=== PATIENT | female | born 1990 | race Caucasian/White ===

== ENCOUNTER 2024-11-01 13:35 | Outpatient (REF) | payer BC, SELFPAY ==
--- OUTSIDE RECORDS SUMMARY | 2024-11-01 15:01 | XMS_ITS | Data Portability ---
Author Organization [facility], , [facility] Address [address] [place] [address] Care Team Providers Care Process Planner Name Role Phone CORRIE FLOYD Primary Care Provide r SEAMUS YOON OTHER EMORY PEACOCK Referring Provider [phone] Assessment Encounter Date Assessment Date Assessment LastModified by Organization Details LastModified Time 07/12/2023 07/12/2023 Visit 2 of 8 Re-eval Due: 09/04/23 Next visit : ? ecc DL heel raise Short Term Goals: In 4 weeks, patient will: 1. Perform DL heel raise with support PRN and foot pain no greater than 4/10. 2. Walk for 10 minutes with foot pain no greater than 4/10. [facility] Goals: In 8 weeks, patient will: 1. Demonstrate pain free active, passive and resisted motions of the right and left foot and ankle. 2. Demonstrate normalized gait on level surfaces for 500 feet. 3. Walk for 20 minutes without foot pain. 4. Demonstrate independence with comprehensive HEP. Subjective : my feet feel a little better, R ankle pain not as bad as it has been L ankle starting to hurt a tiny bit now, too haven't done the [iso ankle eversion] much b/c the side of my feet can hurt if something touches them Objective : -hypertonicity and TTP B plantar muscles, plantar fascia, peroneals Therex : -reviewed HEP w/ pt, updated as below. -seated plantar fascia stretch -toe spreading -gastroc stretch at wall, on step -iso ankle eversion -plantar fascia mob w/ ball Neuromuscular Re-ed : Manual Therapy : -STM and TPR B plantar muscles, distal peroneals -gentle CFM B plantar fascia, peroneal tendons Assessment : Encouraged pt to use ice and to roll feet daily. Reinforced importance of performing HEP consistently to determine efficacy. Plan : follow up next week. Access Code: [email or web address] URL: [email or web address] Date: 07/12/2023 Prepared by: Mandie Foy'Addlucia Exercises - Towel Scrunches - 1 x daily - 7 x weekly - 3 sets - 10 reps - Seated Isometric Ankle Plantarflexion - 3 x daily - 7 x weekly - 1 sets - 5 reps - 15 hold - Isometric Ankle Inversion - 3 x daily - 7 x weekly - 1 sets - 5 reps - 15 hold - Seated Quadratus Lumborum Stretch in Chair (Mirrored) - 3 x daily - 7 x weekly - 1 sets - 3 reps - 15 hold - Gastroc Stretch with Foot at Wall - 3 x daily - 7 x weekly - 1 sets - 3 reps - 15 hold - Seated Plantar Fascia Mobilization with Small Ball - 1 x daily - 7 x weekly - 3 sets - 10 reps - Isometric Ankle Eversion at Wall - 3 x daily - 7 x weekly - 1 sets - 5 reps - 15 hold [email or web address] Not available 07/12/2023 10:17:17 07/19/2023 07/19/2023 Visit 3 of 8 Re-eval Due: 09/04/23 Next visit : ? ecc DL heel raise Short Term Goals: In 4 weeks, patient will: 1. Perform DL heel raise with support PRN and foot pain no greater than 4/10. 2. Walk for 10 minutes with foot pain no greater than 4/10. 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 Demonstrate pain free active, passive and resisted motions of the right and left foot and ankle. 2. Demonstrate normalized gait on level surfaces for 500 feet. 3. Walk for 20 minutes without foot pain. 4. Demonstrate independence with comprehensive HEP. Subjective : arches of my feet feel fine, not really any pain there. my heels have been painful and I've been doing a lot of stretching, rolling and icing. I haven't done any stretches yet this week, b/c it's the week before neema and everything is crazy busy. I'v also been wearing my sneakers in stead of my crocs and my feet always hurt when I wear anything other than my crocs. Objective : -hypertonicity and TTP B tib posterior, R peroneals -foot ER during tib posterior stretch Therex : -reviewed HEP w/ pt, updated as below. -seated plantar fascia stretch -iso ankle PF -iso ankle eversion -seated ankle inversion w/ YTB x 8 R, small ROM x 10 R -standing tib posterior stretch Neuromuscular Re-ed : Manual Therapy : -STM and TPR B distal tib posterior, R distal peroneals -gentle CFM B distal tib posterior Assessment : Patient reports medial ankle pain during ankle inversion w/ YTB, discomfort when performed in a smaller ROM; pt will d/c if exacerbates symptoms. Counseled pt re: pathology of tendinopathy and likelihood of recurrence. Tib posterior stretch ineffective on R until pt performed w/ her R foot pointing forward. Plan : follow up next week. Access Code: [email or web address] URL: [email or web address] Date: 07/19/2023 Prepared by: Mandie Flynn Exercises - Towel Scrunches - 1 x daily - 7 x weekly - 3 sets - 10 reps - Seated Isometric Ankle Plantarflexion - 3 x daily - 7 x weekly - 1 sets - 5 reps - 15 hold - Isometric Ankle Inversion - 3 x daily - 7 x weekly - 1 sets - 5 reps - 15 hold - Seated Quadratus Lumborum Stretch in Chair (Mirrored) - 3 x daily - 7 x weekly - 1 sets - 3 reps - 15 hold - Gastroc Stretch with Foot at Wall - 3 x daily - 7 x weekly - 1 sets - 3 reps - 15 hold - Seated Plantar Fascia Mobilization with Small Ball - 1 x daily - 7 x weekly - 3 sets - 10 reps - Isometric Ankle Eversion at Wall - 3 x daily - 7 x weekly - 1 sets - 5 reps - 15 hold - Seated Figure 4 Ankle Inversion with Resistance - 1 x daily - 7 x weekly - 1-3 sets - 10 reps - Tibialis Posterior Stretch at Wall - 3 x daily - 7 x weekly - 1 sets - 3 reps - 15 hold ddaddamio Not available 07/20/2023 19:51:09 Plan of Treatment Reminders Order Date Submit Date Provider Last Modified By Organization Details Last Modified Time Details Appointments Follow Up, 2024 09:45A Paige Yoon DPM Not available Not available Not available Follow Up, 2024 09:30A Paige Shaw MD Not available Not available Not available Lab lipid panel, serum 2023 024 [facility], [address] [place] [address], [address], 08/16/2024 09:42:07 fungus , cultur e, skin or hair or nails - lt toe nail 2023 024 [facility], [address] [place] [address], [address], 12/19/2023 11:37:50 Referral audiol ogist referr rae Oconnell evalumaria antonia brand for hearin g loss 2023 024 [email or web address] [facility] [address] [place] [address], [place], [address], 07/28/2024 13:48:36 podiat rist referr al - ongokenyetta g rt heel pain 2023 024 [email or web address] Seamus Yoon DPM, [address] [facility], [place], [address], 12/12/2023 10:17:28 Procedures None record ed. Surgeries None record ed. Imaging US, gallbl adder - fatty liver noted in 2021 024 [facility] (Imaging), [address], [place], [address], 07/20/2024 09:00:46 Medication Orders nicoti ne 7 mg/24 hr daily transd ermal patch 2023 024 livan santillano [id number], [address] [place], [address], 07/19/2024 20:24:39 nicoti ne (polac rilex) 2 mg gum 2023 024 [id number] [address] [place], [address], 07/19/2024 11:44:00 clobet asol 0.05 % scalp soluti on 2023 024 [id number] [address] [place], [address], 07/19/2024 12:02:53 calcip otrien e 0.005 % topica l cream 2023 024 [id number] [address] [place], [address], 07/19/2024 12:02:52 cephal exin 500 mg capsul e 2023 024 [id number] [address] [place], [address], 07/19/2024 11:11:49 Patient TargetsNo targets recorded. Patient Instructions Encounter Date Encounter Id Patient Instructions Last Modified By Organization Details Last Modified Time 11/17/2023 [id number] [facility] serves as the focal point for all health care services the patient needs. 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 Referral for Hea ring loss evaluate for hearing loss Referring Physician: Corrie Shaw, Family Medicine, Encounter Date: 07/19/2024 Results Created Date Observation Date Name Description Value Unit Range Abnormal Flag Note LastModifiedBy Organization Detail LastModifiedTime 11/17/19 24 12/19/2023 CULTU RE,FU NGUS, SKIN, HAIR, NAIL W/DIR ECT FLUOR /JURGEN culture,becky us,skin,hair , nail w/direct fluor/jurgen CULTU RE,FU NGUS, SKIN, HAIR, NAIL W/DIR ECT FLUOR /JURGEN Micro Numbe r: [id number] Test Statu s: Final Speci men Sourc e: [place] Speci men Quali ty: Adequ ate Smear : No funga l eleme nts seen. Resul t: No funga l growt h at 4 Weeks [facility] Demog dmitriy cs [place] es Patie nt demog raphi cs have pittman ed. Refer ence range s may have been rocío ed. Sex,S pec updat ed to: F Pittman ed on: 11/20 Not Available [facility] [address], [address], 12/19/2023 11:37:50 08/14/1908/16/2024 COMP. METAB OLIC PANEL glucose 110 mg/dL 70-100 high Not Available [address], [address], 08/16/2024 09:42:06 08/14/1908/16/2024 COMP. METAB OLIC PANEL BUN 9 mg/dL 7-18 Not Available [address], [address], 08/16/2024 09:42:06 08/14/1908/16/2024 COMP. METAB OLIC PANEL creatinine 0.8 mg/dL 0.8-1. 3 Not Available [address], [address], 08/16/2024 09:42:06 08/14/19 25 08/16/2024 COMP. METAB OLIC PANEL B/C 11.3 ratio Not Available [address], [address], 08/16/2024 09:42:06 08/14/1908/16/2024 COMP. METAB OLIC PANEL GFR >=60ML /MIN mL/mi n normal >=60m L/min - Shona l or midly reduc ed <60mL /min- Decre ased kidne y funct ion <15mL /min - Kidne y failu re [facility] calcu lates estim ated Glome rular Filtr ation Rate (eGFR ) using the Chron ic Kidne y Disea se Epide miolo gy Colla borat ion (CKD- EPI) Equat ion (Lucille garnett et. al 2020) as recom kiley d by the Natio nal Kidne y Found ation . eGFR is based on age, serum creat inine , and sex. CKD-E PI does not calcu late eGFR by race, does not apply to child jimmie (age <18 years ), and shoul d not be used in pregn shanice. Not Available [address], [address], 08/16/2024 09:42:06 08/14/1908/16/2024 COMP. METAB OLIC PANEL sodium 140 mmol/ L 136-14 5 Not Available [address], [address], 08/16/2024 09:42:06 08/14/19 25 08/16/2024 COMP. METAB OLIC PANEL potassium 3.9 mmol/ L 3.5-5. 1 Not Available [address], [address], 08/16/2024 09:42:06 08/14/1908/16/2024 COMP. METAB OLIC PANEL chloride 104 mmol/ L 96-107 Not Available [address], [address], 08/16/2024 09:42:06 08/14/1908/16/2024 COMP. METAB OLIC PANEL anion gap 12.7 5.0-15 .0 Not Available [address], [address], 08/16/2024 09:42:06 08/14/19 25 08/16/2024 COMP. METAB OLIC PANEL CO2 23 mmol/ L 21-32 Not Available [address], [address], 08/16/2024 09:42:06 08/14/19 25 08/16/2024 COMP. METAB OLIC PANEL calcium 8.8 mg/dL 8.5-10 .3 Not Available [address], [address], 08/16/2024 09:42:06 08/14/19 25 08/16/2024 COMP. METAB OLIC PANEL total protein 7.7 g/dL 6.4-8. 2 Not Available [address], [address], 08/16/2024 09:42:06 08/14/1908/16/2024 COMP. METAB OLIC PANEL albumin 4.1 g/dL 3.4-5. 0 Not Available [address], [address], 08/16/2024 09:42:06 08/14/1908/16/2024 COMP. METAB OLIC PANEL globulin 3.6 g/dL Not Available [address], [address], 08/16/2024 09:42:06 08/14/1908/16/2024 COMP. METAB OLIC PANEL A/G 1.1 ratio 0.8-2. 0 Not Available [address], [address], 08/16/2024 09:42:06 08/14/1908/16/2024 COMP. METAB OLIC PANEL total bilirubin 0.30 mg/dL 0.00-1 .00 Not Available [address], [address], 08/16/2024 09:42:06 08/14/1908/16/2024 COMP. METAB OLIC PANEL AST 23 U/L 0-37 Not Available [address], [address], 08/16/2024 09:42:06 08/14/19 25 08/16/2024 COMP. METAB OLIC PANEL ALT 41 U/L 6-63 Not Available [address], [address], 08/16/2024 09:42:06 08/14/1908/16/2024 COMP. METAB OLIC PANEL alk. phos. 97 U/L 50-136 Not Available [address], [address], 08/16/2024 09:42:06 08/14/1908/16/2024 LIPID PANEL cholesterol 134 mg/dL <200 mg/dl Srini able 200-2 39 mg/dl Borde rline High >240 mg/dl High Not Available [address], [address], 08/16/2024 09:42:07 08/14/1908/16/2024 LIPID PANEL triglyceride s 155 mg/dL <150 mg/dL Shona l 150-1 99 mg/dL Borde rline High 200-4 99 mg/dL High >500 mg/dL Very High Not Available [address], [address], 08/16/2024 09:42:07 08/14/1908/16/2024 LIPID PANEL direct HDL 36 mg/dL <40 mg/dl - Major Risk for CHD >60 mg/dl - Negat jaida Risk for CHD Not Available [address], [address], 08/16/2024 09:42:07 08/14/1908/16/2024 DIREC T BILIR UBIN direct bilirubin 0.10 mg/dL 0.00-0 .30 Not Available [address], [address], 08/16/2024 09:42:08 08/14/1908/16/2024 LDL - CALCU LATED LDL - calculated 67 RISK CATEG ORY LDL GOAL _ CHD or CHD Risk Equiv alent s <100 mg/dl (10-y ear risk >20%) 2+ Risk Facto rs <130 mg/dl (10-y ear risk <= 20%) 0-1 Risk Facto r? <160 mg/dl ? Almos t all peopl e with 0-1 risk facto r have a 10 year risk <10%, thus 10 year risk asses ment in peopl e with 0-1 risk facto r is not neces antoinette. Not Available [facility] [address] [facility], [place], [address], 08/16/2024 09:42:09 07/20/20 24 07/20/2024 US, cristina wiseman r CLINIC [place] HISTOR Y: Histor y of nonalc oholic steato hepati tis. TECHNI QUE: 2D sonogr aphy of the right upper quadra nt perfor med. COMPAR WILMER: 016 FINDIN GS: The liver is echoge sarah. The liver measur es 20 cm on a sagitt al image. There are no solid liver masses or intrah epatic duct dilata tion. The gallbl adder has been remove d. Common duct: 6 mm Visual ized portio ns of the pancre as are unrema rkable . Right kidney 3.8 x 10.5 cm. The right kidney has no visual ized stones , solid masses , or hydron ephros is. There is no ascite s. IMPRES GENTRY: 1. Status post cholec ystect leslie. 2. Increa sed echoge nicity of the liver which has been descri bed with terms such as fatty liver, nonalc oholic fatty liver diseas e, and metabo lic dysfun ction- associ ated steato tic liver diseas e. Readin g Physic vidhya: Iva Hardwick ms nlapointe [facility] (Imaging) [address], [place], [place], [address], 08/06/2024 09:27:46 Result Notes None recorded. Problems Name Problem SNOMED Code Status Onset Date Resolution Date Notes Provider Name and Address Organization Details Recorded Time Psoriasis 2864598 Active 018 Corrie Shaw MD [address] [place] [address] [place], [address], [facility] 8 10:22:03 Non-alcohol ic fatty liver 582313951 Active 022 Bisi Jensen DNP, [address] [place], [address], [facility] 2 12:26:41 Tobacco user 024137428 Active 022 Bisi Jensen DNP, [address] [place], [address], [facility] 2 08:25:27 Psoriasis of scalp 156955590 Active 024 Corrie Shaw MD [address] [place] [address] [place], [address], [facility] 4 20:28:17 Problem Notes None recorded. Procedures Surgical History Date Name Laterality Status Provider Name and Address Organization Details Recorded Time 07/19/20 Smoking cessation counseling completed Selam Lozada MA [facility] 07/19/2024 09:55:50 11/17/19 24 Smoking cessation counseling completed Selam Lozada MA [facility] 11/17/2023 15:37:00 11/17/19 24 [id number] completed Magalis Hawkins, TOÑO [address] [place] [address], [address], [facility] 11/17/2023 16:10:11 07/19/20 [id number]: Therapeutic Exercise completed Mandie Cole, PT [address] [place], [address], [facility] 07/20/2023 19:51:44 07/19/20 [address]: Manual Therapy completed Mandie Cole, PT [address] [place], [address], [facility] 07/20/2023 19:51:47 07/12/20 [address]: Therapeutic Exercise completed Mandie Cole, PT [address] [place], [address], [facility] 07/12/2023 10:17:48 07/12/20 23 [address]: Manual Therapy completed Mandie Cole, PT [address] [place], [address], [facility] 07/12/2023 10:17:50 07/04/20 Smoking Cessation Counselling completed Mandie Cole, PT [address] [place], [address], [facility] 07/04/2023 14:18:32 07/04/20 Physical Activity Counselling completed Mandie Cole, PT [address] [place], [address], [facility] 07/04/2023 09:19:09 07/04/20 11121: PT Eval Low Complexity completed Mandie Cole, PT [address] [place], [address], [facility] 07/04/2023 09:19:09 07/04/20 Treatment and Advice completed Mandie Cole, PT [address] [place], [address], [facility] 07/06/2023 09:40:46 05/06/20 23 Smoking cessation counseling completed Selam Lozada MA [facility] 05/06/2023 07:51:46 11/25/19 23 Smoking cessation counseling completed YOKO Flores [address] [place], [address], [facility] 11/24/2022 15:08:51 10/06/19 23 Smoking cessation counseling completed Magalis Castillo MA [facility] 10/05/2022 10:02:51 09/13/19 23 Smoking cessation counseling completed Paola Paulson MA [facility] 09/13/2022 11:54:02 09/13/19 23 Skin Tag Removal (up to 15) completed Corrie Shaw MD [address] [place], [address], [facility] 09/13/2022 20:52:25 05/26/20 22 cholecystectomy completed Ashley Sidhu PA-C [address] [place] [address], [address], [facility] 05/28/2022 10:12:55 04/30/20 22 Smoking cessation counseling completed Bisi Jensen DNP, [employer] OPERATOR-BC [address] [place], [address], [facility] 04/30/2022 08:23:17 04/30/20 22 [facility] 08:20:35 06/26/20 18 POC hCG Testing completed Sharon Aragon [facility] 06/26/2018 14:59:38 11/05/19 18 POC Strep Testing completed Ashlee Salmon [facility] 11/04/2017 16:13:03 02/08/20 17 Colonoscopy completed Corrie Shaw MD [address] [place] [address], [address], [facility] 02/08/2017 13:43:25 11/04/19 17 POC Strep Testing completed Sharon Aragon [facility] 11/03/2016 10:21:23 10/31/19 16 Cerumen Removal completed Corrie Shaw MD [address] [place] [address], [address], [facility] 10/31/2015 19:43:44 07/13/20 12 Smoking cessation counseling completed Jose Borden [facility] 07/13/2012 10:24:27 06/30/20 12 Smoking cessation counseling completed Jose Borden [facility] 06/30/2012 08:52:38 Imaging Results Imaging Date Name Status LastModified by Organiz ation Details LastModified Time 07/20/2024 [facility] [address], [place], [address], 08/06/2024 09:27:46 Procedure Notes None recorded. Medical Equipment None Reported. Allergies Allergen ID Allergen Name Allergen Category Reaction Reaction Severity Criticality Documentation Date Start Date Code Code System Note Provider Name and Address Organization Details Recorded Time 296721 pineapple extract food itching Not available Not available 07/19/2024 04104 74 RxNorm Selam Lozada MA [facility] 4 11:11:33 No known drug allergies Medications Name Sig Start Date Stop Date Status Note LastModified by Organization Details LastModified Time amoxicilli n 500 mg capsule active Not Available Not Available Not Available promethazi ne-DM 6.25 mg-15 mg/5 mL oral syrup TAKE 5 MILLILIT ER(S) ORAL THREE TIMES A DAY 07/22 completed not taking Not Available Not Available Not Available prednisone 10 mg tablet TAKE 5,4,3,2, 1 TABLET(S ) ORAL DAILYN EED NEW INS 04/26 completed Not Available Not Available Not Available nicotine 14 mg/24 hr daily transderma l patch APPLY 1 PATCH BY TRANSDER MAL ROUTE EVERY DAY 05/06 completed Not using 10/05/22 JAMES Not Available Not Available Not Available clindamyci n HCl 300 mg capsule TAKE 1 CAPSULE BY MOUTH EVERY 8 HOURS FOR 7 DAYS active Not Available Not Available No t Available cetirizine 10 mg tablet take 1 tablet by mouth once daily 11/04 completed Not Available Not Available Not Available azithromyc in 250 mg tablet TAKE 2 TABLETS BY MOUTH TODAY, THEN TAKE 1 TABLET DAILY FOR 4 DAYS 04/26 completed not taking Not Available Not Available Not Available nicotine (polacrile x) 2 mg gum Chew 1 piece of gum every 2 hours by oral route as needed, for smoking cessatio n. active Not Available Not Available No t Available fluconazol e 150 mg tablet Take 1 tablet every day by oral route for 1 day. 11/04 completed Not Available Not Available Not Available Robafen AC 10 mg-100 mg/5 mL oral liquid take 5 millilit ers by mouth at bedtime for 4 days 06/26 completed Not Available Not Available Not Available hydrocodon e 5 mg-acetami nophen 325 mg tablet take 1 tablet by mouth every 6 hours if needed for pain 11/04 completed Not Available Not Available Not Available clobetasol 0.05 % topical cream APPLY A THIN LAYER TO THE AFFECTED AREA(S) BY TOPICAL ROUTE 2 TIMES PER DAY as needed on psoriasi s on elbows 11/16 completed Not Available Not Available Not Available penicillin V potassium 500 mg tablet active Not Available Not Available Not Available metronidaz ole 500 mg tablet take 1 tablet by mouth every 8 hours for 7 days 11/03 completed Not Available Not Available Not Available prochlorpe razine maleate 10 mg tablet 02/18 completed Not Available Not Available Not Available sulfametho xazole 800 mg-trimeth oprim 160 mg tablet TAKE 1 TABLET BY MOUTH EVERY 12 HOURS FOR 7 DAYS 11/24 completed Not Available Not Available Not Available Nicotrol 10 mg inhalation cartridge 6-16 cartridg es/day inhaled as needed 05/06 completed Not Available Not Available Not Available tramadol 50 mg tablet active Not Available Not Available Not Available oxycodone- acetaminop hen 5 mg-325 mg tablet TAKE 1 TABLET BY MOUTH 3 TIMES DAILY NEEDED FOR 4 DAYS active Not Available Not Available No t Available cephalexin 500 mg capsule Take 1 capsule 3 times a day by oral route for 7 days. 07/19 completed Not Available Not Available Not Available calcipotri james 0.005 % topical cream APPLY A THIN LAYER TO THE AFFECTED AREA(S) BY TOPICAL ROUTE 2 TIMES PER DAY ; RUB IN GENTLY AND COMPLETE LY on elbows and knees active Not Available Not Available No t Available lidocaine 5 % topical patch APPLY 1 PATCH BY TOPICAL ROUTE ONCE DAILY (MAY WEAR UP TO 12HOURS. ) active Not Available Not Available No t Available lidocaine HCl 2 % mucosal solution TAKE 15 MLS BY MOUTH EVERY 3 HOURS active Not Available Not Available No t Available omeprazole 20 mg capsule,de layed release Take 1 capsule every day by oral route for 14 days. 07/22 completed Not Available Not Available Not Available bisacodyl 5 mg tablet,del ayed release take 4 tablets by mouth with 8 ounce(s) GLASS OF WATER THE DAY BEFORE PROCEDUR E 02/18 completed Not Available Not Available Not Available mupirocin 2 % topical ointment APPLY A SMALL AMOUNT TO THE AFFECTED AREA BY TOPICAL ROUTE twice a day for 14 days active Not Available Not Available No t Available nystatin 100,000 unit/gram topical powder APPLY TO THE AFFECTED AREA(S) BY TOPICAL ROUTE 2 TIMES PER DAY 05/06 completed Not Available Not Available Not Available clobetasol 0.05 % scalp solution APPLY TO THE AFFECTED SCALP AREA BY TOPICAL ROUTE 2 TIMES PER DAY IN THE MORNING AND EVENING active Not Available Not Available No t Available SF 5000 Plus 1.1 % dental cream 05/31 completed Not Available Not Available Not Available clotrimazo le 1 % topical cream PLEASE SEE ATTACHED FOR DETAILED DIRECTIO NS 11/16 completed Not Available Not Available Not Available doxycyclin e hyclate 100 mg tablet TAKE 1 TABLET BY MOUTH TWICE A DAY 04/26 completed Not Available Not Available Not Available dicyclomin e 10 mg capsule TAKE 1 CAPSULE TWICE A DAY BY MOUTH NEEDED FOR 10 DAYS 03/05 completed Not Available Not Available Not Available nicotine 7 mg/24 hr daily transderma l patch Apply 1 patch every day by transder mal route for 30 days, for smoking cessatio n. active Not Available Not Available No t Available oxycodone 5 mg tablet TAKE 1 TABLET (5 MG TOTAL) BY MOUTH EVERY 4 (FOUR) HOURS NEEDED. PARTIAL FILL OK 07/22 completed Not Available Not Available Not Available erythromyc in with ethanol 2 % topical gel PLEASE SEE ATTACHED FOR DETAILED DIRECTIO NS 05/06 completed Not Available Not Available Not Available azithromyc in 500 mg tablet take 1 tablet by mouth with meals FOR 1 DOSE 01/23 completed Not Available Not Available Not Available bupropion HCl XL 150 mg 24 hr tablet, extended release TAKE 1 TABLET BY MOUTH EVERY DAY FOR 30 DAYS active Not Available Not Available No t Available Vitamin C 11/16 completed Not Available Not Available Not Available echinacea 11/16 completed otc prn Not Available Not Available Not Available hydrocodon e 5 mg-acetami nophen 300 mg tablet active Not Available Not Available No t Available ProAir HFA 90 mcg/actuat ion aerosol inhaler inhale 2 puffs by mouth every 4 to 6 hours if needed 06/26 completed Not Available Not Available Not Available GaviLyte-G 236 gram-22.74 gram-6.74 gram-5.86 gram oral solution 02/18 completed Not Available Not Available Not Available Purelax 17 gram/dose oral powder TAKE 17 GRAM(S) MIX IN LIQUID BY MOUTH FOR 5 DAYS DIRECTED 04/26 completed Not taking Not Available Not Available Not Available One-A-Day Women's Complete active Not Available Not Available Not Available Vitals Date Recorded Body height Heart rate Systolic blood pressure Diastolic blood pressure Provider Name and Address Organization Details Last Updated DateTime 11/17/2023 165.1 cm 68 /min 132 mm[Hg] 80 mm[Hg] Selam Lozada MA [facility] 11/17/2023 15:38:55 Date Recorded Body height Body mass index (BMI) Body weight Heart rate Systolic blood pressure Diastolic blood pressure Provider Name and Address Organization Details Last Updated DateTime 165.1 cm 36.4 kg/m2 75521.7 3 g 76 /min 126 mm[Hg] 82 mm[Hg] Selam DEBBI Lozada [facility] 4 11:14:20 Social History Question Answer Notes LastModified by Organizat ion Details LastModified Time Tobacco Smoking Status Current Every Day Smoker quit September 2015 ; smoked for 3 yrs 5 daily Selam RoshanDEBBI villasenor [facility] 07/22/2022 07:53:43 What Is Your Level Of Alcohol Consumption? Occasional Information not available 10/02/2013 What Is Your Level Of Caffeine Consumption? Occasional Information not available 10/23/2015 What Type Of Diet Are You Following? REGULAR Information not available 06/30/2012 Which Illicit Or Recreational Drugs Have You Used? 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 10 Information not available 05/06/2015 Are There Any Guns Present In Your Home? No Information not available 10/23/2015 Live Alone Or With Others? With Others Lives With Gayle Information not available 07/24/2022 Patient Has Health Care Proxy Signed And In Chart Yes 07/30/24 HCP Updated In Chart stpick Information not available 05/05/2018 Marital Status Domestic Partner Information not available 07/24/2022 Mosquito Repellent Used Routinely No Information not available 10/23/2015 What Was The Date Of Your Most Recent Tobacco Screening? 07/19/2024 Information not available 07/19/2024 How Many Children Do You Have? 2019 Mary Jane Information not available 07/22/2022 What Is Your Current Pack Years? [email or web address] Information not available 05/06/2015 What Is Your Relationship Status? Domestic Partner Gayle Information not available 07/22/2022 Seat Belts Used Routinely Yes Information not available 10/23/2015 Are You Sexually Active? Yes Information not available 06/30/2012 Smoke Alarm In Home Yes Information not available 10/23/2015 How Much Tobacco Do You Smoke? 0.25 PPD Information not available 07/22/2022 What Types Of Sporting Activities Do You Participate In? None Information not available 10/23/2015 General Stress Level Medium Information not available 06/30/2012 Do You Use Sunscreen Routinely? Yes Information not available 10/23/2015 Do You Or Have You Ever Used Any Other Forms Of Tobacco Or Nicotine? No Information not available 07/22/2022 Sex: Female Functional Status None recorded. Mental Status None recorded. Family History Relationship Description Onset Age of this Age Resolved Age Notes LastModified by Organization Details LastModified Time Maternal Grandmother Gastroesopha geal reflux disease [employer]cast illo Not available 10/27/2015 20:38:48 Maternal Grandmother Disorder of intestine pt does not know specif ics [employer] [facility] Not available 10/27/2015 20:38:48 Mother Well adult [employer] ill[facility] Not available 10/27/2015 20:38:48 Mother Psoriasis [employer] [facility] Not available 01/23/2019 11:32:19 Father Well adult [employer] illo Not available 10/27/2015 20:38:48 Sister Psoriasis [employer]cast illo Not available 01/23/2019 11:32:28 Notes:no breast, colon CA. N o MIs.; sisters all healthy Medical History No medical history recorded. Gynecological History Statement/Question Response Menses Monthly Y Current Control Method None Age at Menarche 16 Date of LMP 10/30/2017 Obstetrics History GPAL:G 0 P 0 0 0 0 Immunizations Vaccine Type Date Status Note Provider Nam e and Address Organization Details Recorded Time Tdap 07/13/2012 completed Not Available [facility] 08/18/2019 02:26:05 Tdap 03/31/2020 completed Paige Forbes [facility] 11/17/2023 15:37:14 COVID-19, mRNA, LNP-S, PF, 30 mcg/0.3 mL dose 12/18/2020 [facility] 11:16:28 COVID-19, mRNA, LNP-S, PF, 30 mcg/0.3 mL dose 01/08/2021 [facility] 11:16:28 Past Encounters Encounter ID Performer Location Encounter Start Date Encounter Closed Date Diagnosis/Indication Diagnosis SNOMED-CT Code Diagnosis ICD10 Code Diagnosis Note [id number] KALPANA Byrd [facility], OFFICE [address] [place] [address] [phone] 6 06/30/2012 08:32:14 06/30/2012 09:34:50 [id number] Josi JACKSON [facility], OFFICE [address] [place] [address] [phone] 6 07/13/2012 10:14:19 07/13/2012 13:54:04 [id number] Margot JACKSON [facility], OFFICE [address] [place] [address] [phone] 6 10/02/2013 09:06:30 10/02/2013 10:04:25 Adult health examination 909592790 see Risk Assessment and Lifestyle Change Counseling section above Counseling [id number] Examinatio n for population survey 257060816 Screening for malignant neoplasm of cervix 266887641 Leukorrhea 828027367 Bacterial vaginosis 457155138 [id number] Kamilla JACKSON [facility], OFFICE [address] [place] [address] [phone] 6 10/11/2013 14:57:56 10/11/2013 15:47:24 Menorrhagia 276412161 [id number] Kamilla JACKSON [facility], OFFICE [address] [place] [address] [phone] 6 11/15/2013 16:15:25 11/15/2013 16:48:11 Viral syndrome 019701732 Bacterial vaginosis 243385461 [id number] Debbie Thibodeaxu LPN , [facility], OFFICE [address] [place] [address] [phone] 6 01/31/2014 08:55:44 01/31/2014 09:24:02 Leukorrhea 178721230 Bacterial vaginosis 808997195 [id number] Mag Arriaza MA , [facility], OFFICE [address] [place] [address] [phone] 6 09/06/2014 11:30:00 09/06/2014 12:05:06 Sinusitis 02218775 [id number] , [facility], OFFICE [address] [place] [address] [phone] 6 09/10/2014 10:50:54 09/10/2014 12:11:11 Acute upper respiratory infection 69259423 Educated patient that URI is a viral illness of the upper airways. It is not bacterial and does not benefit from antibiotic s. Average duration of URI is 7-10 days but in a recent trial, treatment at 7-10 days of illness with antibiotic s, intranasal steroids, or placebo did not alter natural history at 3 weeks. Recommende d symptomati c treatments including NSAIDS, semi-uprig ht sleep position, antihistam rosaline at HS, limited course of nasal sympathomi metics and/or cough syrups, and nasal saline rinses with soft squeeze bottle or Neti pot. Return for fevers > 101 for 3 days, worsening sinus pain, or failure to resolve in 2-4 weeks. Pharyngitis 862715829 [id number] Snow Lobo MA , [facility], OFFICE [address] [place] [address] [phone] 6 09/18/2014 13:39:17 09/18/2014 14:06:45 Upper respiratory infection 92299351 Pharyngitis 041923691 [id number] Mag Arriaza MA , [facility], OFFICE [address] [place] [address] [phone] 6 09/20/2014 10:25:55 09/20/2014 11:06:58 Lymphadenopathy 14465938 Discussed and seen with Shaunna Pain in throat 375109786 Follow up with Shaunna on Tuesday Abdominal pain 66855944 Follow up with Yohana Seay. Call if you have nausea or vomiting. [id number] Yohana Seay PA-C , [facility], OFFICE [address] [place] [address] [id number] 6 09/24/2014 13:39:15 09/24/2014 14:00:46 Viral syndrome 232055423 overall improving. EBV IGG negative (IGM was positive) WBC 13, no atypical lymphs noted Monospot negative Lymphadenopathy 63127262 improving [id number] , [facility], OFFICE [address] [place] [address] [phone] 6 10/17/2014 08:05:51 10/17/2014 08:47:37 Adult health examination 399401285 see Risk Assessment and Lifestyle Change Counseling section above Counseling [id number] Venereal d isease screening 813690256 Upper resp iratory infection 24552193 [id number] Valeria Chavis CMA , [facility], OFFICE [address] [place] [address] [phone] 6 11/07/2014 10:45:38 11/07/2014 14:06:34 Cough 52493976 Influenza 6723754 You te sted positive for flu. the severe part of the course of flu can last 7-10 days. Follow up if symptoms worsen Fever 694635079 [id number] Chaya Au , [facility], OFFICE [address] [place] [address] [phone] 6 03/13/2015 17:06:24 03/14/2015 11:25:15 Neuropathy 436659988 [id number] Ronel hawk [facility], OFFICE [address] [place] [address] 6 05/06/2015 15:44:40 05/06/2015 16:56:46 Backache 525450287 M54.9 acute lower back strain with some radicular symptoms. Advise ice, rest aleve or tylenol for pain and physical therapy to help with proper healing. [id number] Corrie Shaw MD , [facility], OFFICE [address] [place] [address] [phone] 6 08/19/2015 11:43:58 08/19/2015 12:37:11 Syncope [id number] R55 [id number] , [facility], OFFICE [address] [place] [address] [phone] 6 08/21/2015 11:36:24 08/21/2015 12:15:00 Syncope [id number] R55 [id number] Lavinia Mayen LPN , [facility], OFFICE [address] [place] [address] [id number] 6 08/22/2015 12:33:18 08/22/2015 16:33:46 Syncope 526454255 R55 [id number] Corrie Shaw MD , [facility], OFFICE [address] [place] [address] [phone] 6 08/29/2015 11:33:55 08/29/2015 12:29:35 Vasovagal syncope 023273799 R55 Pain of sternum 31486140 3 R07.2 [id number] Corrie Shaw MD , [facility], OFFICE [address] [place] [address] [phone] 6 10/23/2015 10:56:20 10/23/2015 12:25:46 Adult health examination 420296905 Z00.00 see Risk Assessment and Lifestyle Change Counseling section above Counseling 425707271 Z71 .9 Venereal d isease screening 881815960 Z11.3 Bacterial vaginosis 4197 43673 N76.0 Impacted cerumen 0866154 6 H61.23 [id number] MD RENETTA Trinidad, [facility], OFFICE [address] [place] [address] [phone] 6 10/31/2015 11:57:18 10/31/2015 14:31:11 Abdominal pain 59166356 R10.9 Impacted cerumen 8708772 6 H61.23 [id number] Olya Beauchamp , [facility], OFFICE [address] [place] [address] [phone] 6 11/03/2015 16:44:59 11/03/2015 17:31:33 Abdominal pain 58855082 R10.9 [id number] Tori Beck NP , [facility], OFFICE [address] [place] [address] [place] [address] 6 01/09/2016 09:25:51 01/09/2016 10:09:20 Thoracic back pain 929408629 M54.6 Recommend trial of OTC naprosyn & take it twice a day with food. Try to stick with it for at least a week Pain in pelvis 40020060 R10.2 Psoriasis 8176487 L40.9 Abdominal pain 93617716 R10.9 [id number] Melanie Araiza MD , [facility], OFFICE [address] [place] [address] [phone] 6 03/05/2016 14:26:20 03/05/2016 15:09:40 Cellulitis 262453415 L03.90 Cellulitis of right fifth toe.Fairly sudden onset of redness, swelling, and pain of the right fifth toe last night. She feels a little shaky, felt a little clammy this morning and headachy. Denies fever or chills. She is generally healthy, does not drink alcohol excessivel y, and would be at low risk for gout which was my other thought for a diagnosis. I did get a second opinion from Dr. Choi and he agreed that it would be best to treat with antibiotic s. Keflex 500 mg 3 times a day for 7 days, elevation, warm soaks, 10 minutes twice a day, avoid excessive walking.Re turn on 03/08 if poor response to medication . Return on day 6 or 7 if only partial resolution . I would expect everything to be completely normal by day 6 or 7.Contact us right away if things get worse such as expanding area of redness, red streaks going up the leg, fever or chills.Ruddy e the antibiotic with food to avoid an upset stomach. [id number] Corrie Shaw MD , [facility], OFFICE [address] [place] [address] [id number] 6 05/31/2016 11:41:06 05/31/2016 12:51:46 Vaginal discharge 312649877 N89.8 Mass of ronan dy structure 944058858 R22.9 [id number] Corrie Shaw MD , [facility], OFFICE [address] [place] [address] [phone] 6 07/29/2016 13:49:19 07/29/2016 14:32:56 Bacterial vaginosis 521391176 N76.0 -Metronida zole for 7 days-no sexual intercours e till symptoms resolve-ov er the counter goldbond feminin cream (hydrocort isone 1% cream) to apply externally for itchy relief-fol low up as planned with obgyn-retu rn sooner if symptoms to not resolve or worsen even with treatment [id number] Corrie Shaw MD , [facility], OFFICE [address] [place] [address] [phone] 6 11/03/2016 10:08:38 11/03/2016 12:22:59 Acute upper respiratory infection 31132899 J06.9 Educated patient that URI is a viral illness of the upper airways. It is not bacterial and does not benefit from antibiotic s. Average duration of URI is 7-10 days but in a recent trial, treatment at 7-10 days of illness with antibiotic s, intranasal steroids, or placebo did not alter natural history at 3 weeks. Recommende d symptomati c treatments including NSAIDS, semi-uprig ht sleep position, antihistam rosaline at HS, limited course of nasal sympathomi metics and/or cough syrups, and nasal saline rinses with soft squeeze bottle or Neti pot. Return for fevers > 101 for 3 days, worsening sinus pain, or failure to resolve in 2-4 weeks. Sore throat 846536525 J0 2.9 [id number] DELPHINE Huang , [facility], OFFICE [address] [place] [address] [phone] 6 02/18/2017 09:57:36 02/18/2017 10:23:07 Viral upper respiratory tract infection 735338606 J06.9 this is a viral infection, worsened by your allergies. Allergic rhinitis 691007 04 J30.9 [id number] JOSE Kendrick , [facility], OFFICE [address] [place] [address] [phone] 6 11/04/2017 15:48:38 11/04/2017 16:25:11 Acute pharyngitis 201848709 J02.9 Rapid strep test in clinic is negativeWi ll send for culture Acute bronchitis 2845454 2 J20.9 Likely viralWill treat with as needed albuterolR eviewed self-admin istration instructio nsMay use cough syrup at bedtimePus h fluids, elderberry /zinc lozenges, steam, humidifier at nightRetur n to clinic for worsening or unresolved symptoms [id number] Corrie Shaw MD , [facility], OFFICE [address] [place] [address] [phone] 6 11/29/2017 09:33:29 11/29/2017 10:39:58 Adult health examination 030147701 Z00.00 see Risk Assessment and Lifestyle Change Counseling section above Counseling 116975514 Z71 .9 Depression screening 171 881089 Z13.89 depression screening tool administer ed, entered into emr, scored and discussed, time greater than 7.5 minutes Screening for malignant neoplasm of cervix 511035158 Z12.4 Psoriasis 1868603 L40.9 Abnormal weight gain 161 324664 R63.5 Cough 48945546 R05 Epigastric pain 14280345 R10.13 [id number] Marcello Slade MD , [facility], OFFICE [address] [place] [address] 46152-619 6 06/26/2018 14:34:21 06/26/2018 16:43:53 Left lower quadrant pain 860572610 R10.32 [id number] Z33.1 [id number] Corrie Shaw MD , [facility], OFFICE [address] [place] [address] [phone] 6 01/23/2019 10:52:10 01/23/2019 12:45:52 Adult health examination 135317675 Z00.00 see Risk Assessment and Lifestyle Change Counseling section above Counseling 951782267 Z71 .9 Depression screening 171 788549 Z13.89 depression screening tool administer ed, entered into emr, scored and discussed, time greater than 7.5 minutes Psoriasis 3462072 L40.9 Body mass index 30+ - obesity 521822280 Z68.35 Bilateral plantar fasciitis 1075458685 9473383 M72.2 [id number] Jose Manuel Choi MD , [facility], OFFICE [address] [place] [address] 88513-562 6 01/29/2019 10:14:18 01/29/2019 13:01:12 Pain in both feet 9947561601 3372970 M79.671 28 year old with pain in both feet without known diagnosis at this time. May be diffuse tendonitis and or other structural concerns. She will go to podiatry appointmen t which was reschedule d for this week. continue current management until appointmen t. Note give for work. [id number] Seamus Yoon DPM Podiatry, [facility] [address] [place] [address] 01/31/2019 09:17:35 01/31/2019 09:54:28 Plantar fasciitis 862790020 M72.2 Peroneal tendinitis 5320 8009 M76.70 [id number] Bisi Jensen DNP, [employer] OPERATOR[employer] , [facility], OFFICE [address] [place] [address] 6 04/22/2022 12:11:55 04/22/2022 13:03:31 Abdominal pain 97831201 R10.9 Suspect gastroente ritis complicate d by leeanne King hx of abnormal gallbladde r, given history with check abd u/Citlalli is more concentrat ed at lower pelvisUrin e hcg neg TI testing neg at CDHu/a neg in ER x 2Unable to give urine todayWill r/o with HCG via blood work, w CBC and CRPImaging F/U in office in 1 week or pending resultsRed flags for emergent careReview ed home care, clear fluids, rest Screening for malignant neoplasm of cervix 319018098 Z12.4 [id number] Marcello Slade MD , [facility], OFFICE [address] [place] [address] 6 04/26/2022 14:37:51 04/28/2022 09:51:56 Screening for disorder 467018360 Z11.59 Pt. had blood work @ [facility] This [facility]. [facility] Active or passive immunization 679845202 Z23 declines all vaccines today 04/26/22 GILSON Gastroesop hageal reflux disease without esophagitis 550105410 K21.9 Feeling of lump in throat 222765943 F45.8 discussed. Keep us posted, if this lump is getting worse off to either send her to ENT or GI. He is pretty high neck but it is swallowing related so it falls a little bit between the discipline s. Non-alcoho lic fatty liver 008986779 K76.0 disudcssed some things she can do and listen too. about it. [id number] Bisi Jensen DNP, [employer] OPERATOR-BC , [facility], OFFICE [address] [place] [address] 04/30/2022 07:55:04 04/30/2022 08:32:31 Screening for malignant neoplasm of cervix 235674326 Z12.4 Due for pap. Plan at wellness. Screening for disorder 857856881 Z11.59 Active or passive immunization 507128204 Z23 Td/Tdap - declinedFL U - declined Impacted cerumen 9089320 6 H61.21 RIght ear- irrigation Leukocytosis 040029146 D 72.829 Recheck, was elevated previous , monitoring .Reviewed red flags for emergent care. Cholelithi asis without obstruction 22574723 K80.20 Currently stable, mild symptoms. Reviewed Gen Surgery note and Abd u/s results. Plans 05/26/22 surgery w/ Dr. Redd for removal. Reviewed red flags for emergent care. Tobacco user 608753295 Z 72.0 Encouraged to continue cutting back/quitt ing. Offered cessation products, declined. F/U with PCP [id number] Corrie Shaw MD , [facility], OFFICE [address] [place] [address] 07/22/2022 07:43:34 07/22/2022 08:33:11 Adult health examination 878164974 Z00.00 see Risk Assessment and Lifestyle Change Counseling section above Counseling 783943324 Z71 .9 Depression screening 171 384204 Z13.31 depression screening tool administer ed, entered into emr, scored and discussed, time greater than 7.5 minutes Screening for alcohol abuse 753962643 Z13.39 Active or passive immunization 792376145 Z23 Pt declines Flu and TD/tdap 07/22 as Psoriasis 9539467 L40.9 Tobacco user 303452089 Z 72.0 Tinea corporis 85412513 B35.4 Screening for malignant neoplasm of cervix 657179350 Z12.4 Psoriasis of scalp 91479 8008 L40.9 [id number] Corrie Shaw MD , [facility], OFFICE [address] [place] [address] [phone] 6 09/13/2022 11:33:04 09/13/2022 13:36:48 Tobacco user 749318069 Z72.0 We discussed your smoking today for more than 3 minutes. Cigarette use is the leading cause of preventabl e disease, disability , and in the [facility]. We talked about tools and medication s available to help you in smoking cessation. We discussed utilizing our smoking cessation riding coach and online resources. Your personal goal: Tinea corporis 58253635 B35.4 Multiple skin tags 47317 7009 L91.8 [id number] Keyana Fisher NP , [facility], OFFICE [address] [place] [address] 10/05/2022 09:57:57 10/06/2022 11:11:05 Tobacco user 638865437 Z72.0 We discussed your smoking today for more than 3 minutes. Cigarette use is the leading cause of preventabl e disease, disability , and in the [facility]. We talked about tools and medication s available to help you in smoking cessation. We discussed utilizing our smoking cessation riding coach and online resources. Your personal goal: QUIT! great job cutting down to 2 cigs a day. Will try nicotrol and continue to taper Active or passive immunization 510812582 Z23 Flu: declinesTD : Pt states she had in 2020 at Abscess of skin and/or subcutaneous tissue 40762676 L02.91 right trunk. Non fluctuant. Will treat with regular warm compresses and abx as prescribed . okay to take probiotics during and for a week or so after the antibiotic s. Follow up if the redness spreads significan tly, purulent drainage, fever, or not improving in 2-3 days. [id number] Josi Brito , [facility], OFFICE [address] [place] [address] [phone] 6 11/24/2022 14:51:52 11/24/2022 15:20:32 Tobacco user 709640606 Z72.0 We discussed your smoking today for more than 3 minutes. Cigarette use is the leading cause of preventabl e disease, disability , and in the [place]. We talked about tools and medication s available to help you in smoking cessation. We discussed utilizing our smoking cessation riding coach and online resources. Your personal goal: start nicotrol inhaler as previously prescribed Pain of ri ght shoulder joint 6487804816 3029849 M25.511 Will get xrayWill continue supportive care- rest, heat/ice, ibuprofen/ tylenol, start lidocaine patch as wellDiscus sed PT vs sports medicine, pt would like to get xray first and will reassess based on resultPlea se contact the office for any worsening symptoms [id number] Bisi Jensen DNP, [employer] PR[employer] OPERATOR-BC , [facility], OFFICE [address] [place] [address] 01/20/2023 16:45:44 01/20/2023 17:53:57 Tobacco user 441111956 Z72.0 We discussed your smoking today for more than 3 minutes. Cigarette use is the leading cause of preventabl e disease, disability , and in the [place] [place]. We talked about tools and medication s available to help you in smoking cessation. We discussed utilizing our smoking cessation riding coach and online resources. Your personal goal: follow up w/ PCP Perioral dermatitis [id number] L71.0 TRial of erythromyc in twice daily Aquaphor Could alternativ joe consider 1 % hydrocorti sone, clotrimazo le OTC, aquaphor mixture twice dailyF/U [facility] [place] office if worsening or not resolving [id number] YOKO Romero , [facility], OFFICE [address] [place] [phone] 04/14/2023 16:29:49 04/15/2023 08:27:26 Upper respiratory infection [id number] J06.9 -POC strep negative-- will send cx Take ibuprofen 400 mg or acetaminop hen 650 mg every 6 hours as needed for aches or headache and for fever. You can use a Neti pot for nasal congestion or sinus pain/press ure. Elderberry extract and Umcka are herbal remedies that have been shown to reduce length of flu-like symptoms. Gargling with salt water can help your immune system fight off the sore throat. Mix 1/2 teaspoon of salt with 8 oz warm water, gargle for 20-30 secs, and spit out the liquid. Repeat twice daily. Use Sugar free lozenges can help with a sore throat. Wash your hands frequently . Symptoms may worsen for the first 7-10 days before they improve For high fever (>101) for more than 3 days, worsening shortness of breath, cough productive of rust-color ed mucus (not dark yellow), or symptoms unchanged at two weeks, come back in for reassessme nt (urgent care available in [place] office 04-04 and 04-12 by appointmen t - call after 8AM for appt.) Dry cough can last for up to six weeks. Pain in throat [id number] R07.0 negative rapid, send cx [id number] Corrie Shaw MD , [facility], OFFICE [address] [place] [phone] 05/06/2023 10:24:58 05/06/2023 19:24:06 Tobacco user [id number] Z72.0 We discussed your smoking today for more than 3 minutes. Cigarette use is the leading cause of preventabl e disease, disability , and in the [place]. We talked about tools and medication s available to help you in smoking cessation. We discussed utilizing our smoking cessation riding coach and online resources. Your personal goal: Psoriasis [id number] L40.9 Plantar fasciitis 434097 003 M72.2 [id number] MINDY NúñezM Podiatry, [address] [phone] 06/28/2023 12:25:17 06/28/2023 13:56:12 Plantar fasciitis [id number] M72.2 Peroneal tendinitis 5320 8009 M76.70 [id number] Mandie Cole, PT Physical Therapy, [address] [phone] 07/04/2023 10:18:38 07/06/2023 10:32:33 Plantar fasciitis of right foot [id number] M72.2 Patient is a 32-year old {{male fem alexi*}} who presents to physical therapy with complaint of bilateral foot pain, R > L, which is {{improvin g not changing w orsening*} }. Physical examinatio n revealed decreased foot intrinsic strength bilaterall y L > R, pain during resisted testing, and increased tension and TTP of the plantar fascia, tibialis posterior, and peroneals bilaterall y as well as the right tibialis anterior. Findings most consistent with plantar fasciitis bilaterall y with concomitan t peroneal, tibialis posterior, and tibialis anterior tendinopat hy. Patient has moderate functional limitation in their ADLs and work capacity. Their primary limitation s are with LE weight bearing when getting out of bed in the morning or after sitting for longer than 20 minutes, standing for longer than 10 minutes, squatting, and walking for longer than 5-10 minutes. Skilled physical therapy is indicated to safely and progressiv joe address impairment s and functional limitation s as outlined below. Patient is a good candidate for physical therapy due to a good support system, and motivation to actively participat e in their plan of care. Short Term Goals:In 4 weeks, patient will:1. Perform DL heel raise with support PRN and foot pain no greater than 4/10.2. Walk for 10 minutes with foot pain no greater than 4/10. Psychology Department Chair Goals:In 8 weeks, patient will:1. Demonstrat e pain free active, passive and resisted motions of the right and left foot and ankle.2. Demonstrat e normalized gait on level surfaces for 500 feet.3. Walk for 20 minutes without foot pain.4. Demonstrat e independen ce with comprehens jaida HEP. Treatment Plan: Patient to return for 8 visits over 8 weeks. We expect significan t change in pain, impairment and function in this time frame. Treatment to Include: Continuing assessment , HEP (initiated ), neuromuscu lar re-educati on, therapeuti c exercise, patient education, manual therapy PRN, modalities PRN. Plantar fa sciitis of left foot [id number] M72.2 [id number] Mandie Cole, PT Physical Therapy, [address] [phone] 07/12/2023 09:28:27 07/12/2023 10:50:43 Plantar fasciitis of right foot [id number] M72.2 Plantar fa sciitis of left foot [id number] M72.2 [id number] Mandie Cole, PT Physical Therapy, [address] [phone] 07/19/2023 15:58:57 07/21/2023 07:46:45 Plantar fasciitis of right foot [id number] M72.2 Plantar fa sciitis of left foot [id number] [id number] M72.2 [id number] Magalis Hawkins NP , [facility], OFFICE [address] [place] [phone] 11/17/2023 15:28:05 11/17/2023 16:27:04 Nicotine dependence [id number] F17.200 We discussed your smoking/va ping today for more than 3 minutes. Cigarette/ pod use is the leading cause of preventabl e disease, disability , and in the [place]. We talked about tools and medication s available to help you in smoking/va ping cessation. We discussed utilizing our smoking cessation riding coach and online resources. Toenail thickened [id number] R23.8 Disc'd antifungal meds and need for monitoring liver function etc.She would like the culture and will decide on treatment later. Paronychia of toe 553661 002 L03.039 - will start if redness around nail bed continues or worsens- start probiotic if you start antibiotic - follow up if symptoms worsen Plantar fa sciitis of right foot [id number] M72.2 -follow up w podiatry [id number] Corrie Shaw MD FP, [facility], OFFICE [address] [place] [phone] 07/19/2024 10:58:17 07/19/2024 15:00:01 Adult health examination [id number] Z00.00 see Risk Assessment and Lifestyle Change Counseling section abovedecli esa flu vaccine Depression screening 171 [id number] Z13.31 depression screening tool administer ed Screening for alcohol abuse 189660252 Z13.39 Alcohol use screening tool administer ed Nicotine dependence 5629 4008 F17.200 We discussed your smoking/va ping today for more than 3 minutes.Sm oking tobacco is the leading cause of preventabl e disease, disability , and in the [place]. Inhaling aerosolize d nicotine is widely believed to be safer than combustibl e tobacco, but still exposes people to numerous harmful substances , heavy metals like lead, and cancer-cau sing agents. Nicotine is harmful to developing brains and can disrupt the formation of brain circuits that control attention, learning, and susceptibi lity to addiction. We talked about tools and medication s available to help you in smoking/va ping cessation. We discussed utilizing our smoking cessation riding coach and online resources. Your personal goal: whole family quitting in 2024Good luck! You can do it! Active or passive immunization 921497050 Z23 Pt declines Flu and TD/tdap 07/22 as Flu:declin es 07/19/24 as Non-alcoho lic fatty liver 951203144 K76.0 dx in 2021 - will get labs and repeat u/s to re-evaluat e Psoriasis 3551605 L40.9 much better, leg plaques resolved - with avoiding food that precipitat e her IBSstill has plaques on elbows and knees, clobetasol not effective, will try calcipotri james and let me know via portal. Tobacco user 361140984 Z 72.0 We discussed your smoking today for more than 3 minutes. Cigarette use is the leading cause of preventabl e disease, disability , and in the [place]. We talked about tools and medication s available to help you in smoking cessation. We discussed utilizing our smoking cessation riding coach and online resources. Your personal goal: quit in 2024 Hearing loss 75685697 H9 1.91 given referral to audiologis t - pt will make an appt if needed Psoriasis of scalp 95024 8008 L40.9 clobetasol effective, refill given Health Concerns Section Related Observation LastModified by Organization Detai ls LastModified Time None Recorded Concern Status LastModified by Organization Details LastModified Time None Recorded Advance Directives Directive None Recorded Payers Encounter Date Sequence Insurance Name Policy Number Policy Sullivan Covered Member ID Sullivan Member ID Guarantor Name 07/04/[address] [facility] [id number] [facility] Maria Antonia Roblero [id number] Lori Og [place] 07/12/[address] [facility] [id number] [facility] Maria Antonia Roller [id number] Lori Maria Antonia [place] 07/19/[address] [facility] [id number] Batsheva Robleroer [id number] Lori Ashford 11/17/[address] [facility] [id number] [facility] Antonia Robleroer [id number] Lori Ashford Notes Date Note Type Note Provider Name and Address Organization Details Recorded Time 07/04/2023 text/html Intake ReviewedReported bypatient.Patient intake form reviewedwith patient including functional limitations. Document is scanned into chartPT Initial Eval*Reported bypatient.History:Brittnee draper started to have B foot pain, R > L, a few years ago. Symptoms improved when she changed jobs and started wearing supportive boots. She has gone back to her previous job and foot wear, and foot pain has worsened again. She also c/o R knee and ankle pain which she thinks is related to foot pain. Pt states that Crocs are the only foot wear that doesn't produce more pain in her arches, no foot wear decreases heel pain. Pt also experiencing L-sided LBP, sudden onset yesterday evening. Symptom intensity:average 6/10 Symptom duration:frequently Symptom change:symptoms are getting worse Symptom quality:dull; burning; shooting Aggravating Factors:worse in the morning; worse at nighttime; standing; walking; bending/squatting; running/jumping (unable) Alleviating Factors:sitting; ice Sleep Status:difficulty sleeping due to pain(sometimes) Prior History:no similar problems in the past; no prior PT for other problems in the past year; no recent hospitalization; not currently taking a blood thinner; no allergy to latex; no falls in the past year;similar problems in the past episodic(2-3 years) Prior Studies:none Prior Treatments:none 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) Activities/Hobbies/Ex ercise:none (exercise) Associated Symptoms:excessive fatigue; no nausea; no vomiting; no fever; no chills; no confusion; no forgetfulness; no dizziness; no lightheadedness; no change in weight; no numbness; no tingling; no changes in urinary habits; no changes in bowel habits; no loss of pleasure or interest in activities; no feeling down or depressed; at the present time the patient views their health status as fair Functional Scores:OPTIMAL global score: 43/110 = 39% limitation; patient identified functional limitations 5/5 unable to do (walk long distance); patient identified functional limitations 3/5 able to do with moderate difficulty (walk short distance, walk outdoors, standing, squatting) Mandie Cole, PT [address] [place], [phone], [facility] 07/06/2023 09:40:50 11/17/2023 text/html 11/17/23L toenail is sore to touchRedness around toe nail started last few dayshas had thickened toe nail for several months- saw podiatry and he did not want to treatno hx of trauma known to toe nail bed plantar fascititswants to see the technical clerk again for [employer]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, [employer]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 [address] [place], [phone], [facility] 11/17/2023 16:16:06 07/19/2024 text/html Risk Assessment AdultReported bypatient.Coronary Artery Disease Risk Assesment:No Family history of coronary artery disease; No personal history of diabetes; No history of peripheral vascular disease, AAA, or carotid disease; No personal history of coronary artery disease; Patient has low risk for coronary artery disease Breast Cancer Risk Assessment:No family history of breast cancer; No history of breast cancer or dcis Colon Cancer Risk:No personal history of colon cancer or polyps; No family history of colon polyps or cancer; Patient has low risk for colon cancer Lung Cancer Risk Assessment:Never smoked; No symptoms of Lung Cancer; No asbestos exposure; Patient has higher than average risk for lung cancer Fracture Risk Assessment:No unexplained fracture; Patient has low risk for osteoporotic bone fractures Cognitive/Behavioral Risk Assessment:No personal history of mental illness; No family history of mental illness Safety Risk Assessment:Do you feel safe in your current relationship?YES Diet:Counseled about appropriate portion size; Counseled about eating a diet low in trans and saturated fats and high in fiber, fruits and vegetables; Counseled about appropriate calcium intake and good dietary sources of calcium.; Discussed the value of a Mediterranean diet, and eating more fruits and vegetables Family Planning:Not using control Exercise counseling:Discussed the importance of daily physical activity; Discussed the importance of weight bearing exercise Counselling:Counseled about protecting skin from the sun and lowering the risk of skin cancera/vmg-smoking [id number] bypatient.Efraín og scale of 1-10 with 1 being not important and 10 being very important the patient rates importance of stopping smoking / vaping as 10 ConfidenceOn a scale of 1-10 with 1 being not confident and 10 being very confident the patient rates confidence on stopping smoking / vaping as 10 Readiness to quit smoking/vapingOn a scale of 1-10 with 1 being not ready and 10 being very ready the patient rates readiness to stop smoking /vaping as 10 Physiological Dependence/Health RiskCurrently smoking 5 cigarettes per day smokes 4 cig/day used to be 6 per day Corrie Shaw MD [address] [place] [address], [phone], [facility] 07/19/2024 20:34:33 OBGyn Episode No OBEpisode recorded.
== END 2024-11-01 13:36 | disposition home or self-care (01) ==
LOC: HO.SH 13:35
PROVIDERS: Visit Provider Family Medicine
DX: Z01.118 Encounter for examination of ears and hearing with other abnormal findings (principal); H90.41 Sensorineural hearing loss, unilateral, right ear, with unrestricted hearing on the contralateral side
CPT/HCPCS: 92557; 92567